=== PATIENT | female | born 1975 | race Caucasian/White ===

== ENCOUNTER 2021-03-11 00:09 | Emergency (ER) | payer SELFPAY ==
[~2021-03-11] VITALS: Ht 157.5 cm; Wt 77.1 kg
[2021-03-11 00:20] VITALS: BP 115/77
--- NOTE | 2021-03-11 00:20 | NUR ---
TO BED AMBULATORY
--- NOTE | 2021-03-11 00:30 | NUR ---
PATIENT PRESENTS TO ED WITH C/O COLD SX . SKIN IS PINK/WARM/DRY; AAOX4 WITH EVEN AND STEADY GAIT; LUNGS CLEAR BL; HR EVEN AND REGULAR; PATIENT STATES PAIN OF 0/10 AT THIS TIME; VSS; PATIENT POSITIONED FOR COMFORT; HOB ELEVATED; BEDRAILS UP X2; BED DOWN. ER MD MADE AWARE OF PT STATUS.
[2021-03-11] MEDS ORDERED: IBUPROFEN 800 MG TAB PO ONE (01:00)
[2021-03-11] MEDS ORDERED: ACETAMINOPHEN EXTRA STRENGTH 500 MG TAB PO ONE (01:00)
[2021-03-11 01:07] VITALS: BP 115/77
--- NOTE | 2021-03-11 01:07 | NUR ---
Patient discharged with v/s stable. Written and verbal after care instructions given and explained. Patient verbalized understanding. Ambulatory with steady gait. All questions addressed prior to discharge. Advised to follow up with PMD.
== END 2021-03-11 01:07 | disposition home or self-care (01) ==
LOC: MED 00:09
DX: R50.9 Fever, unspecified (principal); Z20.822 Contact with and (suspected) exposure to COVID-19; R51.9 Headache, unspecified; J02.9 Acute pharyngitis, unspecified; M79.10 Myalgia, unspecified site; M54.5 Low back pain; F17.210 Nicotine dependence, cigarettes, uncomplicated
CPT/HCPCS: 99283